=== PATIENT | female | born 1950 | race Caucasian/White ===

== ENCOUNTER 2017-01-27 06:51 | Observation (INO) | payer OTHER ==
[2017-01-27] MEDS ORDERED: NS 1,000 ML IV ONE (06:55)
--- NOTE | 2017-01-27 07:13 | CPEKG ---
Heart Rate: 63 RR Interval: 952 P-R Interval: 132 QRSD Interval: 98 QT Interval: 404 QTC Interval: 414 P [place]: -50 QRS [place]: 23 T Wave [place]: 10 EKG Severity - OTHERWISE NORMAL ECG - EKG Impression: SINUS OR ECTOPIC ATRIAL RHYTHM Electronically Signed By: Anmol Cruz 27-Jan-2017 08:56:50
[2017-01-27 07:26] LABS: % IMMATURE GRANULYOCYTES 0.3 % (0.0-1.1); ABSOLUTE IMMATURE GRANULOCYTES 0.02 10^3/uL (0.00-0.10); ADD DIFF? NO; ADD MORPH? NO; ADD SCAN? NO; ATYPICAL LYMPHOCYTE FLAG 0 (0-99); FRAGMENT RBC FLAG 0 (0-99); HEMATOCRIT 45.1 % (38.0-47.0); HEMOGLOBIN 15.4 g/dL (12.6-16.3); LEFT SHIFT FLG 0 (0-99); LIPEMIA HEMOLYSIS FLAG 90 (0-99); MEAN CELL HEMOGLOBIN 31.6 pg (27.9-34.1); MEAN CELL HEMOGLOBIN CONCENTR. 34.1 g/dL (32.4-36.7); MEAN CELL VOLUME 92.4 fL (81.5-99.8); MEAN PLATELET VOLUME 9.4 fL (8.7-11.7); PLATELET CLUMPS FLAG 10 (0-99); PLATELET COUNT 284 10^3/uL (150-400); RED BLOOD CELL COUNT 4.88 10^6/uL (4.18-5.33); RED CELL DISTRIBUTION WIDTH 12.8 % (11.5-15.2)
[2017-01-27 07:35] LABS: INR 1.05 (0.83-1.16); PROTIME(PATIENT) 13.6 SEC (12.0-15.0)
[2017-01-27 07:36] LABS: APTT 26.2 SEC (23.0-38.0)
[2017-01-27 07:45] LABS: ANION GAP 10 mEq/L (8-16); CALCIUM 9.3 mg/dL (8.5-10.4); CARBON DIOXIDE 23 mEq/l (22-31); CHLORIDE 108 mEq/L (97-110); CREATININE 0.8 mg/dL (0.6-1.0); GLOMERULAR FILTRATION RATE > 60; GLUCOSE 84 mg/dL (70-100); MAGNESIUM 1.8 mg/dL (1.6-2.3); POTASSIUM 3.6 mEq/L (3.5-5.2); SODIUM 141 mEq/L (134-144)
[2017-01-27] MEDS ORDERED: ISOPROTERENOL HCL/D5W 0.2 MG/50 ML BAG IV ONE (07:54)
[2017-01-27] MEDS ORDERED: HEPARIN 10,000 UNIT/10 ML MDV ONE (07:54)
[2017-01-27] MEDS ORDERED: LIDOCAINE 1% 300 MG/30 ML SDV ONE (07:54)
[2017-01-27] MEDS ORDERED: BUPIVACAINE 0.5% 30 ML SDV ONE (07:54)
--- NOTE | 2017-01-27 08:15 | PDANEPAE ---
ANE History of Present Illness for EP study SVT ablation ANE Past Medical History - Cardiovascular History Hx Hypertension: Yes Hx Palpitations: Yes Cardiovascular History Comment: PSVT - Pulmonary History Hx Oxygen in Use at Home: No Hx Sleep Apnea: No - Endocrine History Hx Diabetes: No - GI History Gastrointestinal History Comment: rare reflux - Chronic Pain History Chronic Pain: No ANE Review of Systems Review of systems is: negative Review of Systems: - Exercise capacity Exercise capacity: >=4 METS ANE Patient History - Allergies Allergies/Adverse Reactions: Sulfa (Sulfonamide Antibiotics) Allergy (Severe, Verified 11/05/10 15:27) severe sores in the mouth - Home Medications Home medications: home medication list seen and reviewed Home Medications: Acetaminophen/ASA/Caffeine [Excedrin Tablet (*)] 1 each PO DAILY PRN 01/29/16 [ Last Taken 01/28/16] Estradiol [Estradiol 1 MG (*)] 1 mg PO DAILY 01/29/16 [Last Taken 01/28/16] Herbals/Supplements -Info Only 1 ea PO DAILY 01/29/16 [Last Taken 01/28/16] Meloxicam 15 mg PO DAILY 01/29/16 [Last Taken 01/28/16] Spironolact/Hydrochlorothiazid [Spironolactone-Hctz 25-25 Tab] 0.5 each PO DAILY 01/29/16 [Last Taken 01/28/16] buPROPion XL [Wellbutrin 150mg XL] 150 mg PO DAILY 01/29/16 [Last Taken 01/28/16 ] - NPO status NPO Status: no food or drink >8 hours - Anes Hx Anes Hx: post operative nausea and vomiting - Smoking Hx Smoking Status: Never smoked - Family Anes Hx Family Anes Hx: none ANE Labs/Vital Signs - Labs Result Diagrams: 01/27/17 07:10 01/27/17 07:10 - Vital Signs Height: 160 cm Weight: 75.7 kg ANE Physical Exam - Airway Neck exam: FROM Mallampati Score: Class 1 Mouth exam: normal dental/mouth exam - Pulmonary Pulmonary: no respiratory distress - Cardiovascular Cardiovascular: regular rate and rhythym - ASA Status ASA Status: II ANE Anesthesia Plan Anesthesia Plan: general endotracheal anesthesia
[2017-01-27] MEDS ORDERED: PROPOFOL 200 MG/20 ML VIAL ONE ×2 (08:27→09:44)
[2017-01-27] MEDS ORDERED: ROCURONIUM 50 MG/5 ML VIAL ONE ×2 (08:27→10:01)
[2017-01-27] MEDS ORDERED: ONDANSETRON 4 MG/2 ML VIAL ONE (08:27)
[2017-01-27] MEDS ORDERED: DEXAMETHASONE 4 MG/ML VIAL ONE (08:27)
[2017-01-27] MEDS ORDERED: LIDOCAINE 2% 100 MG/5 ML SYR ONE (08:27)
[2017-01-27] MEDS ORDERED: fentaNYL 100 MCG/2 ML INJ ONE (08:27)
[2017-01-27] MEDS ORDERED: MIDAZOLAM 2 MG/2 ML VIAL ONE (08:32)
--- NOTE | 2017-01-27 08:38 | PDHPUP ---
History & Physical Update H&P update statement: This history and physical update is based on an assessment of the patient which was completed after admission or registration (within 24 hours), but prior to the surgery/procedure. H&P update: H&P reviewed & patient examined, no change in patient's condition since H&P completed (Episode of SVT on Friday with Hr 185 bpm associated with lightheadedness, [id number] min. D.W her and here son Nicholas that the current procedure is high risk for 3rd degree AV block and she may need a pacemaker post ablation, patient has signed consent for pacemaker. )
[2017-01-27] MEDS ORDERED: SUGAMMADEX SODIUM 200 MG/2 ML VIAL IVP ONE (11:10)
[2017-01-27] MEDS ORDERED: PROTAMINE SULFATE 50 MG/5 ML VIAL IVP ONE (11:21)
[2017-01-27] MEDS ORDERED: ONDANSETRON 4 MG/2 ML VIAL IVP PRN (11:21)
--- NOTE | 2017-01-27 11:38 | EPPROC ---
Electrophysiology Procedure Note: ELECTROPHYSIOLOGIC STUDY AND CATHETER MEDIATED ABLATION OF FOCAL ATRIAL TACHYCARDIA PROCEDURES PERFORMED: 1. EP evaluation with RA/RV/LA pace/record, with arrhythmia induction 2. EP evaluation with RA/RV pace record, insert/reposition catheter, with arrhythmia induction 3. Intracardiac catheter ablation, SVT arrhythmogenic focus 4. [id number] 3D mapping 5. 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 The right clavicular region, right groin, and left groin area were prepped and draped in the usual sterile manner. Anesthesiologist Dr. Pollo Guzman administered general anesthesia. Appropriate non-invasive blood pressure, pulse oximetry and end-tidal CO2 monitoring was established. All catheters were placed percutaneously using the modified Seldinger technique , and advanced into position under fluoroscopic guidance. One #7 Lithuanian deflectable octapolar electrode catheter was advanced to the His-bundle position via the left femoral vein (2mm spacing; except the proximal ring which was 25cm from the tip used for unipolar recordings). One #7 [place]ian deflectable catheter with 10 pairs of electrodes was placed via the left femoral vein into the coronary sinus. German catheter was placed in the RA. , this was later changed to 20 pole echo catheter Programmed stimulation was performed from the right atrium, left atrium ( coronary sinus) and right ventricle. Parahisian pacing demonstrated all retrograde conduction over the AV node Heparin was administered to keep ACT > 200 seconds. After probe patent PFO was noted, additional heparin was given to keep ACT>300 s. There was no antegrade slow AV meseret pathway conduction. Programmed stimulation of right atrium during infusion of isoproterenol 1-2 mcg/ min induced an atrial tachycardia CL 380-420 ms. High resolution mapping of the atrial tachycardia was done using a 3D mapping system (Carto). A detailed 3D map of the right atrium and coronary sinus showed earliest atrial activation along the septal aspect of the echo terminalis at RA-SVC junction. ( Mapping of the RSPV and RIPV via the PFO showed that activation in the left atrium and pulmonary veins was later than the right atrium.) Earliest atrial activation began 20 ms before the onset of the P wave with a negative deflection in the unipolar electrogram. RF applications were delivered to this site. This accelerated and then terminated tachycardia and rendered it non- inducible. Programmed stimulation in the baseline state and during infusion of isoproterenol 1, 2 mcg/min post ablation was performed. No tachycardia could be induced. The catheters were removed. The patient was transferred to the cardiovascular holding area in stable condition. Vascular access sheaths were removed in the holding area. There were no apparent complications. RESULTS A. Spontaneous Intervals: Pre ablation SCL 850 ms AH 60 ms HV 50 ms Post ablation SCL 670 ms AH 55 ms HV 50 ms B. Antegrade AV meseret function (decremental pacing) Pre ablation FPERP 390 ms WBB CL 380 ms Post ablation FPERP 390 ms WBB CL 380 ms C. Retrograde AV meseret function (decremental pacing) Pre ablation FPERP 370 ms WBB CL 360 ms CONCLUSIONS: 1. Focal right atrial tachycardia arising from the septal and superior aspect of echo terminalis. 2. Successful ablation of focal atrial tachycardia. 3. Patent foramen ovale. 4. No apparent complications. Patient Problems: Problems Problem Status Onset Supraventricular tachycardia Acute Ventricular premature complex Acute
[2017-01-27] MEDS ORDERED: ATROPINE SULFATE 1 MG/10 ML SYR ONE (11:49)
--- NOTE | 2017-01-27 12:42 | CPEKG ---
Heart Rate: 113 RR Interval: 531 P-R Interval: 256 QRSD Interval: 88 QT Interval: 336 QTC Interval: 461 P [place]: 0 QRS [place]: 47 T Wave [place]: -22 EKG Severity - ABNORMAL ECG - EKG Impression: Sinus tachycardia with PAC EKG Impression: FIRST DEGREE AV BLOCK EKG Impression: BORDERLINE T ABNORMALITIES, INFERIOR LEADS Electronically Signed By: Anmol Cruz 27-Jan-2017 15:03:56
[2017-01-27] MEDS: DILTIAZEM CD 180 MG CAP PO SCH (14:24)
[2017-01-27] MEDS ORDERED: PROPAFENONE HCL SR 225 MG CAP PO SCH (15:30)
[2017-01-27] MEDS: ACETAMINOPHEN 325 MG TAB PO PRN ×2 (15:50→21:29)
[2017-01-28] MEDS: ACETAMINOPHEN 325 MG TAB PO PRN ×2 (04:47→09:27)
[2017-01-28 05:39] LABS: ANION GAP 10 mEq/L (8-16); CARBON DIOXIDE 23 mEq/l (22-31); CHLORIDE 108 mEq/L (97-110); CREATININE 0.8 mg/dL (0.6-1.0); GLOMERULAR FILTRATION RATE > 60; GLUCOSE 87 mg/dL (70-100); POTASSIUM 4.1 mEq/L (3.5-5.2); SODIUM 141 mEq/L (134-144)
[2017-01-28 05:51] LABS: CREATINE KINASE-MB FRACTION 0.92 ng/mL (0.00-3.19)
[2017-01-28] MEDS ORDERED: PROPAFENONE HCL SR 225 MG CAP PO SCH (06:00)
[2017-01-28 06:04] LABS: INR 1.12 (0.83-1.16); PROTIME(PATIENT) 14.3 SEC (12.0-15.0)
[2017-01-28 06:05] LABS: % IMMATURE GRANULYOCYTES 0.6 % (0.0-1.1); ABSOLUTE IMMATURE GRANULOCYTES 0.06 10^3/uL (0.00-0.10); ADD DIFF? NO; ADD MORPH? NO; ADD SCAN? NO; ATYPICAL LYMPHOCYTE FLAG 0 (0-99); FRAGMENT RBC FLAG 0 (0-99); HEMATOCRIT 42.2 % (38.0-47.0); HEMOGLOBIN 13.8 g/dL (12.6-16.3); LEFT SHIFT FLG 0 (0-99); LIPEMIA HEMOLYSIS FLAG 80 (0-99); MEAN CELL HEMOGLOBIN 31.2 pg (27.9-34.1); MEAN CELL HEMOGLOBIN CONCENTR. 32.7 g/dL (32.4-36.7); MEAN CELL VOLUME 95.3 fL (81.5-99.8); MEAN PLATELET VOLUME 9.8 fL (8.7-11.7); PLATELET CLUMPS FLAG 10 (0-99); PLATELET COUNT 284 10^3/uL (150-400); RED BLOOD CELL COUNT 4.43 10^6/uL (4.18-5.33); RED CELL DISTRIBUTION WIDTH 12.8 % (11.5-15.2)
--- NOTE | 2017-01-28 08:35 | CPEKG ---
Heart Rate: 115 RR Interval: 522 P-R Interval: 159 QRSD Interval: 88 QT Interval: 348 QTC Interval: 482 P [place]: 0 QRS [place]: 44 T Wave [place]: -10 EKG Severity - ABNORMAL ECG - EKG Impression: SINUS TACHYCARDIA WITH IRREGULAR RATE 88-146 EKG Impression: NONSPECIFIC T ABNORMALITIES, INFERIOR LEADS EKG Impression: FIRST DEGREE AVB NO LONGER NOTED Electronically Signed By: Edgar Kinney 28-Jan-2017 13:34:18
--- NOTE | 2017-01-28 08:44 | CPEKG ---
Heart Rate: 63 RR Interval: 952 P-R Interval: 156 QRSD Interval: 92 QT Interval: 408 QTC Interval: 418 P [place]: -62 QRS [place]: 33 T Wave [place]: 12 EKG Severity - OTHERWISE NORMAL ECG - EKG Impression: SINUS OR ECTOPIC ATRIAL RHYTHM Electronically Signed By: Anmol Cruz 28-Jan-2017 15:16:05
[2017-01-28] MEDS ORDERED: ASPIRIN 81 MG CHEWABLE TAB PO SCH (09:00)
[2017-01-28] MEDS ORDERED: buPROPion XL 150 MG TAB PO SCH (09:00)
[2017-01-28] MEDS ORDERED: ESTRADIOL 1 MG TAB PO SCH (09:00)
[2017-01-28] MEDS ORDERED: SPIRONOLACTONE 25 MG TAB PO SCH (09:00)
[2017-01-28] MEDS ORDERED: CHOLECALCIFEROL VIT D3 1,000 UNITS TAB PO SCH (09:00)
[2017-01-28 09:08] VITALS: BP 111/69; PULSE 64; RESP 14; TEMP 97.5; O2SAT 95
[2017-01-28] MEDS ORDERED: DILTIAZEM CD 120 MG CAP PO SCH (09:15)
--- NOTE | 2017-01-28 09:16 | ECHO ---
[id number] + + [address] : : [place] [address] : : [phone] + + Adult Echocardiographic Report + --------+ :Name: INES HINKLE SStudy Date: 01/28/2017 07:46 AM : : Hospital Admission Number: [id number] Locat ion: 223: :: 1950 Gender: Female Height: 63 in : :Age: 66 yrs Race: WH,White Weight: 166 l b : :Reason For Study: F/U post EP study : : BSA: 1.8 mete rs2 : + --------+ MMode/2D Measurements & Calculations IVSd: 0.65 cm LVIDd: 4.9 cm FS: 34.1 % Ao root diam: LVPWd: 0.68 cm LVIDs: 3.2 cm EDV(Teich): 3.4 cm 111.3 ml LA dimension: ESV(Teich): 3.7 cm 41.2 ml EF(Teich): 63.0 % LVLd ap4: 7.6 cm SV(MOD-sp4): EDV(MOD-sp4): 31.0 ml 46.0 ml LVLs ap4: 6.0 cm ESV(MOD-sp4): 15.0 ml EF(MOD-sp4): 67.4 % Normal Measurement Values: + + :LVIDd (3.5-5.7cm) IVSd (0.6-1.1cm) LVPWd (0.6-1.1cm) Aortic Root (2.0-3.7cm)Left Atrium (1.5-4.0cm): :LV Vol(d) (76-115ml) LV Vol(s) (29-48ml) Ejec Fraction (50-65%)PV Luis Fernando (0.6- 1.2m/s) TV Luis Fernando (0.4-1.0m/s) : :MV E Luis Fernando (0.8-1.0m/s)MV A Luis Fernando (0.3-1.0m/s)LVOT Luis Fernando (0.7-1.2m/s) Asc Ao Luis Fernando ( 0.9-1.8m/s) : + + Doppler Measurements & Calculations MV E max luis fernando: 63.2 cm/sec Ao V2 max: 99.1 cm/sec TR max luis fernando: 198.2 cm/sec MV A max luis fernando: 44.4 cm/sec Ao max P.9 mmHg TR max P.7 mmHg MV E/A: 1.4 RAP systole: 5.0 mmHg RVSP(TR): 20.7 mmHg Left Ventricle The left ventricle is normal in size. There is normal left ventricular wall thickness. Left ventricular systolic function is normal. Ejection Fraction = 60-65%. No regional wall motion abnormalities noted. Right Ventricle The right ventricle is normal in size and function. Atria The left atrial size is normal. Right atrial size is normal. The interatrial septum is intact with no evidence for an atrial septal defect. Mitral Valve The mitral valve is normal in structure and function. There is no evidence of mitral valve prolapse. There is no mitral valve stenosis. There is trace mitral regurgitation. Tricuspid Valve Normal tricuspid valve. There is trace tricuspid regurgitation. Aortic Valve The aortic valve is trileaflet. The aortic valve opens well. There is no aortic stenosis. There is no aortic insufficiency. Pulmonic Valve The pulmonic valve is normal in structure and function. Trace pulmonic valvular regurgitation. Great Vessels The aortic root is normal size. Pericardium/Pleural There is no pericardial effusion. Conclusion A complete two-dimensional transthoracic echocardiogram was performed (2D, M-mode, Doppler and color flow Doppler). Left ventricular systolic function is normal. Ejection Fraction = 60-65%. There is trace mitral regurgitation. There is trace tricuspid regurgitation. Trace pulmonic valvular regurgitation. There is no pericardial effusion. Final Reading Physician: Anmol Cruz MD electronically signed on 01/28/2017 09:14 AM Ordering Physician: Anmol Cruz Performed By: Taylor Howell, DIEGOCS
[2017-01-28] MEDS: DILTIAZEM CD 180 MG CAP PO SCH (10:05)
[2017-01-28] MEDS ORDERED: PNEUMOC 13-VAL CONJ-DIP CRM/PF 0.5 ML SYR IM ONE (10:13)
--- NOTE | 2017-01-28 13:34 | GDS ---
[f rep st] DISCHARGE SUMMARY DISCHARGE DIAGNOSIS: Supraventricular tachycardia, status post ablation of atrial tachycardia. BRIEF HISTORY: She has a history of prior AVNRT ablation and right atrial tach ablation in 2010. She then underwent a PVC ablation in 2016. She had done well until about 3 months ago when she started experiencing symptoms of sudden palpitations, racing, and dizziness. SVT up to 185 beats per minute was seen on Holter monitoring, despite taking verapamil. HOSPITAL COURSE: Dr. Cruz performed an RF ablation of focal right atrial tachycardia arising from the septal and superior aspect of the echo terminalis. There is also a PFO noted. There were no inducible tachycardias post ablation. In recovery, she did develop an elevated heart rate again and was started on Cardizem and Rythmol. The plan is to keep these medications for at least 1 month. On telemetry, sinus rhythm, short atrial tachycardia and PACs were noted. She reports no further racing during the night. She denies any chest pain, pressure, tightness, or shortness of breath. She denies any pain at her groin sites or in her legs. TESTING DONE: Echocardiogram demonstrates ejection fraction of 60%. No pericardial effusion and trace MR and TR. EKG demonstrates sinus rhythm with ectopic atrial beats. LABORATORY DATA: WBC is 10.5, hemoglobin 13.8, hematocrit 42.2, platelets 284. PT is 14.3, INR 1.12. Sodium 141, potassium 4.1, chloride 108, bicarb 23, BUN 14, creatinine 0.8, glucose 87, CK 20, CK-MB 0.92. Troponin 0.140. PHYSICAL EXAMINATION: VITAL SIGNS: Blood pressure 92/58, pulse is 66, respirations 12, temperature 36.7, O2 saturation on room air is 96%. GENERAL: She is alert and oriented, sitting up in bed, in no acute distress. CARDIAC: Regular rate and rhythm without murmur, rub, or gallop. LUNGS: Clear to auscultation. ABDOMEN: Soft and nontender. Groin sites are without ecchymosis , hematoma, or bleeding. EXTREMITIES: Warm. No discoloration. No lower extremity edema. She has bilateral +1 DP pulses and +2 PT pulses. DISCHARGE MEDICATIONS: Please see discharge medication reconciliation. Of note , she will take aspirin 81 mg for 6 weeks post ablation, and Rythmol and Cardizem were also started; Rythmol is 225 mg b.i.d. and Cardizem is 120 mg. she will take these for at least 1 month post ablation. These were emailed into [facility] pharmacy per her request. FOLLOWUP: She has a followup on February 26 at 1:[address] Cruz. She will come in for EKG on 01/31 to monitor QRS since starting Rythmol. DISCHARGE INSTRUCTIONS: She was given written and verbal activity restrictions , including no lifting or vigorous activity for 1 week, and she is not returning to work for 1 week. /[id number]/MODL MTDD
== END 2017-01-28 11:05 | disposition home or self-care (01) ==
LOC: FCATH 06:51 → F2W 11:21
PROVIDERS: ADMIT Internal Medicine Cardiovascular Disease; ATTEND Internal Medicine Cardiovascular Disease
PROC: 4A023FZ Measurement of Cardiac Rhythm, Percutaneous Approach (ICD-10-PCS; principal; 2017-01-27)
PROC: 02563ZZ Destruction of Right Atrium, Percutaneous Approach (ICD-10-PCS; principal; 2017-01-27)
PROC: 3E033KZ Introduction of Other Diagnostic Substance into Peripheral Vein, Percutaneous Approach (ICD-10-PCS; principal; 2017-01-27)
DX: I47.1 Supraventricular tachycardia (principal); R55 Syncope and collapse; R33.9 Retention of urine, unspecified
CPT/HCPCS: 90471; 93005; 93306; 93621; 93623; 93653; C1730; C1732; G0378; C1731; G0009; J0461; J1100; J1644; J2001; J2250; J2405; J2704; J2720; J3010